=== PATIENT | male | born 1945 | race Caucasian/White ===

== ENCOUNTER → 2019-01-20 | Outpatient (CLI) | payer MEDICARE ==
[~2019-01-20] MED LIST: CATHETER FLUSH 10 ML SYR IV PRN; HOLD METFORMIN - RECEIVED CONTRAST 20 ML VIAL IV SCH; IOHEXOL 350 MG/ML 100 ML (OMNIPAQUE 350) VIAL IV ONE; NS 50 ML (IVPB) BAG IV ONE
--- NOTE | 2019-01-20 11:51 | Diagnostic Imaging Report ---
PROCEDURE: CT abdomen and pelvis with contrast. TECHNIQUE: Multiple contiguous axial images were obtained through the abdomen and pelvis after administration of intravenous contrast. Auto Exposure Controls were utilized during the CT exam to meet ALARA standards for radiation dose reduction. INDICATION: Left lower quadrant pain. FINDINGS: The heart size is normal. The lung bases are clear. There is fatty infiltration of liver. There is no biliary ductal dilatation. There is cholelithiasis. There is no biliary ductal dilatation. Spleen is normal. The pancreas and adrenal glands are unremarkable. There are bilateral renal cysts. Aorta is nonaneurysmal. There is no free air. There is no ascites. There are no focal inflammatory changes. There is some diverticular disease without evidence of diverticulitis. There are mild degenerative changes in the spine. IMPRESSION: Fatty infiltration of the liver. Bilateral renal cysts. Cholelithiasis. Diverticular disease without evidence of diverticulitis. Dictated by: Dictated on workstation # [id number]
== END ==
LOC: RAD FS 08:40
PROVIDERS: ATTEND Nurse Practitioner Family
DX: K76.0 Fatty (change of) liver, not elsewhere classified (principal); N28.1 Cyst of kidney, acquired; K80.20 Calculus of gallbladder without cholecystitis without obstruction; K57.90 Diverticulosis of intestine, part unspecified, without perforation or abscess without bleeding
CPT/HCPCS: 74177